=== PATIENT | female | born 1990 ===

== ENCOUNTER 2017-06-16 12:11 | Emergency (ER) | payer MEDICAID ==
[2017-06-16 12:30] VITALS: BMI 25.4
[2017-06-16 13:55] LABS: RBC URINE 10 /hpf (0-3); URINE BILIRUBIN NEGATIVE (NEGATIVE); URINE BLOOD 1+ (NEGATIVE); URINE COLOR Yellow (YELLOW); URINE GLUCOSE (UA) NORMAL (Normal); URINE KETONE NEGATIVE (NEGATIVE); URINE LEUKOCYTE ESTERASE 1+ Leu/uL (Negative); URINE PROTEIN NEGATIVE (NEGATIVE); URINE UROBILINOGEN NORMAL mg/dL (0.2-1.0); WBC URINE 12 /hpf (0-5)
[2017-06-16 14:22] VITALS: RESP 18
--- NOTE | 2017-06-16 14:24 | C.PDOC ---
History Of Present Illness 26 year old female presents to the ER with a complaint of dysuria, frequency, and urgency that began this morning. Denies fever or chills. Chief Complaint (Nursing): Female Genitourinary History Per: Patient History/Exam Limitations: no limitations Onset/Duration Of Symptoms: Hrs Current Symptoms Are (Timing): Still Present Quality Of Discomfort: Unable To Describe Associated Symptoms: Urinary Symptoms (Dysuria, frequency, urgency). denies: Fever, Chills Alleviating Factors: None Recent travel outside of the [place]: No Abnormal Vaginal Bleeding: No Past Medical History Reviewed: Historical Data, Nursing Documentation, Vital Signs Vital Signs: Last Vital Signs Temp 97.8 F 06/16/17 14:45 Pulse 66 06/16/17 14:45 Resp 18 06/16/17 14:45 BP 126/83 06/16/17 14:45 Pulse Ox 100 06/16/17 14:45 - Medical History PMH: No Chronic Diseases Surgical History: No Surg Hx Family History: States: Unknown Family Hx - Social History Hx Alcohol Use: No Hx Substance Use: No - Immunization History Hx Tetanus Toxoid Vaccination: No Hx Influenza Vaccination: No Hx Pneumococcal Vaccination: No Review Of Systems Constitutional: Negative for: Fever, Chills Genitourinary: Positive for: Dysuria, Frequency, Other (Urgency) Physical Exam - Physical Exam Appears: Non-toxic, No Acute Distress Skin: Normal Color, Warm, Dry Head: Atraumatic, Normacephalic Oral Mucosa: Moist Chest: Symmetrical, No Tenderness Cardiovascular: Rhythm Regular Respiratory: Normal Breath Sounds, No Rales, No Rhonchi, No Wheezing Gastrointestinal/Abdominal: Soft, Tenderness (Mild suprapubic), No Guarding, No Rebound Neurological/Psych: Oriented x3, Normal Speech, Normal Cognition ED Course And Treatment Progress Note: Urinalysis ordered, results are consistent with UTI. Patient started on macrobid and pyridium and discharged home with PMD follow up. Disposition - Disposition Disposition: HOME/ ROUTINE Disposition Time: 14:20 Condition: STABLE Additional Instructions: Follow up with your PMD within 1-2 days. Return to Ed if feel worse. Prescriptions: Nitrofurantoin Macrocrystals [Macrobid] 1 cap PO BID #14 cap Phenazopyridine [Pyridium] 200 mg PO TID #15 tab Instructions: Urinary Tract Infection in Women (ED) Forms: [facility] (Lao) - Clinical Impression Clinical Impression: UTI (urinary tract infection) - Scribe Statement The provider has reviewed the documentation as recorded by the Scribcheryl Pierre All medical record entries made by the Scribe were at my direction and personally dictated by me. I have reviewed the chart and agree that the record accurately reflects my personal performance of the history, physical exam, medical decision making, and the department course for this patient. I have also personally directed, reviewed, and agree with the discharge instructions and disposition.
[2017-06-16 14:46] VITALS: BP 126/83; PULSE 66; TEMP 97.8; O2SAT 100
== END 2017-06-16 14:45 | disposition home or self-care (01) ==
LOC: C.ER 12:11
DX: N39.0 Urinary tract infection, site not specified (principal)

== ENCOUNTER 2017-08-19 16:10 | Emergency (ER) | payer MEDICAID ==
[2017-08-19 16:10] VITALS: BMI 25.4
[2017-08-19 17:04] VITALS: O2SAT 100
--- NOTE | 2017-08-19 18:18 | C.PDOC ---
Time Seen by Provider: 08/19/17 17:17 Chief Complaint (Nursing): Upper Extremity Problem/Injury Past Medical History Vital Signs: Last Vital Signs Temp 98.1 F 08/19/17 17:01 Pulse 84 08/19/17 17:01 Resp 12 08/19/17 17:01 BP 116/79 08/19/17 17:01 Pulse Ox 100 08/19/17 17:01 Family History: States: Unknown Family Hx - Social History Hx Alcohol Use: No Hx Substance Use: No - Immunization History Hx Tetanus Toxoid Vaccination: No Hx Influenza Vaccination: No Hx Pneumococcal Vaccination: No ED Course And Treatment O2 Sat by Pulse Oximetry: 100 - Other Rad L elbow/shoulder X-Ray: Interpreted by Me (neg) Progress Note: motrin, ice packs Reevaluation Time: 18:17 Reassessment Condition: Improved Medical Decision Making Medical Decision Making: elbow contusion @ work L shoulder sprain no fx's. Disposition Doctor Will See Patient In The: Office Counseled Patient/Family Regarding: Studies Performed, Diagnosis - Disposition Disposition: HOME/ ROUTINE Disposition Time: 18:18 Condition: GOOD - Clinical Impression Clinical Impression: Shoulder contusion, Elbow contusion
[2017-08-19 22:45] VITALS: BP 112/60; PULSE 74; RESP 16; TEMP 98
--- NOTE | 2017-08-20 07:36 | RAD ---
PROCEDURE: Radiographs of the Left Shoulder HISTORY: fall on ADDucted L arm COMPARISON: No prior. FINDINGS: BONES: No acute fracture or destructive bony lesion identified. JOINTS: No dislocation or subluxation identified. Glenohumeral and acromioclavicular joints preserved. No osteoarthritis. SOFT TISSUES: Normal. OTHER FINDINGS: None. IMPRESSION: Unremarkable radiographs of the left shoulder.
--- NOTE | 2017-08-20 07:41 | RAD ---
PROCEDURE: Radiographs of the left elbow. HISTORY: L elbow contusion, fall on ADDucted arm COMPARISON: No prior. FINDINGS: BONES: No acute fracture or destructive bony lesion identified. Small bone island is identified of the proximal ulna JOINTS: Normal. No osteoarthritis. SOFT TISSUES: Normal. JOINT EFFUSION: None. OTHER FINDINGS: None IMPRESSION: No acute fracture dislocation is identified. A small bone island is seen at the proximal ulna. If the patient remains symptomatic then follow-up MRI or possible CT is recommended.
== END 2017-08-19 19:02 | disposition home or self-care (01) ==
LOC: C.ER 16:10
DX: S40.012D Contusion of left shoulder, subsequent encounter (principal); S50.02XD Contusion of left elbow, subsequent encounter; W01.0XXD Fall on same level from slipping, tripping and stumbling without subsequent striking against object, subsequent encounter